=== PATIENT | male | born 1965 | race Caucasian/White ===

== ENCOUNTER 2018-08-26 17:44 | Emergency (ER) | payer MEDICARE, OTHER ==
[~2018-08-26] VITALS: Ht 177.8 cm; Wt 122.2 kg
[2018-08-26 18:43] LABS: BASOPHILS # (AUTO) 0.06 x10^3/uL (0-0.1); BASOPHILS % (AUTO) 1 % (0-1); EOSINOPHILS # (AUTO) 0.25 x10^3/uL (0-0.4); EOSINOPHILS % (AUTO) 2 % (1-7); LYMPHOCYTES # (AUTO) 2.44 x10^3/uL (1-3.4); LYMPHOCYTES % (AUTO) 20 % (22-44); MD NO; MEAN CORPUSCULAR HEMOGLOBIN 31.3 pg (27.5-34.5); MEAN CORPUSCULAR VOLUME 91.9 fL (81-97); MEAN PLATELET VOLUME 7.2 fL (7.4-10.4); MONOCYTES # (AUTO) 1.15 x10^3/uL (0.2-0.8); MONOCYTES % (AUTO) 9 % (2-9); NEUTROPHILS # (AUTO) 8.38 x10^3/uL (1.8-6.8); NEUTROPHILS % (AUTO) 68 % (42-75); PLATELET COUNT 402 x10^3/uL (130-400); RED BLOOD COUNT 4.99 x10^6/uL (4.38-5.82); RED CELL DISTRIBUTION WIDTH 13.7 % (9.4-14.8)
--- NOTE | 2018-08-26 18:52 | NUR ---
TASK RN: Attempted to place andres catheter, patient tolerated, small amount of blood return in catheter tubing and patient reporting discomfort, catheter removed. After catheter removed patient stated he had to urinate, went into restroom and states he feels he has emptied his bladder, discomfort has resolved. Patient states burning with urination. Dr. Gao notified, per Dr. Gao perform bladder scan after patient urinates. Clean catch urine sample collected and sent to lab.
[2018-08-26 18:56] LABS: ALANINE AMINOTRANSFERASE 51 U/L (12-78); ALBUMIN 4.2 g/dL (3.4-5.0); ANION GAP 9 mmol/L (5-15); CALCIUM 9.4 mg/dL (8.5-10.1); CHLORIDE 111 mmol/L (98-107); CREATININE 1.23 mg/dL (0.7-1.3)
[2018-08-26 18:58] LABS: ALKALINE PHOSPHATASE 115 U/L (45-117); BILIRUBIN,TOTAL 0.2 mg/dL (0.2-1.0); TOTAL PROTEIN 7.8 g/dL (6.4-8.2)
[2018-08-26 19:11] LABS: MICROSCOPIC INDICATED
--- NOTE | 2018-08-26 19:14 | NUR ---
Bladder scan 55mL, Dr. Gao notified. Report back to ABHINAV Caldwell.
--- NOTE | 2018-08-26 19:22 | NUR ---
report taken from ABHINAV Mathews. pt resting on gurney, resps even and unlabored. EDMD Gao at bedside to update pt with POC and results.
[2018-08-26 19:24] LABS: CULTURE INDICATED? NO
--- NOTE | 2018-08-26 19:26 | NUR ---
pt requesting toradol for discomfort at urethral opening. EDMD Murray notified.
[2018-08-26] MEDS ORDERED: KETOROLAC 30 MG/1 ML IM ONE (19:30)
--- NOTE | 2018-08-26 19:51 | NUR ---
PT MEDICATED PER EMAR, TOLERATED WELL WITH NO S/SX ADVERSE RXN. PT A&O, RESPS EVEN AND UNLABORED. NO COMPLAINT AT DC. PT GIVEN DC INSTRUCTIONS. PT AMBULATED TO DC DESK WITH STEADY GAIT, NADN AT DC.
[2018-08-26 19:52] VITALS: BP 135/79
== END 2018-08-26 19:58 | disposition home or self-care (01) ==
LOC: ED 19:02
DX: R31.0 Gross hematuria (principal); R33.9 Retention of urine, unspecified
CPT/HCPCS: 36415; 51701; 74176; 80053; 81001; 85025; 96372; 99284; C1726; J1885; 51702; P9612